=== PATIENT | female | born 2000 | race Two or more races ===

== ENCOUNTER 2025-03-27 15:58 | Emergency (ER) | payer OTHER ==
[~2025-03-27] VITALS: Ht 157.5 cm; Wt 64.2 kg
[2025-03-27 20:13] VITALS: BP 108/62; TEMP 98.6; O2SAT 97
== END 2025-03-27 20:25 | disposition home or self-care (01) ==
LOC: M ED 15:58
DX: S13.9XXA Sprain of joints and ligaments of unspecified parts of neck, initial encounter (principal); V49.40XA Driver injured in collision with unspecified motor vehicles in traffic accident, initial encounter; Z91.010 Allergy to peanuts; Y92.410 Unspecified street and highway as the place of occurrence of the external cause; Y93.89 Activity, other specified; Y99.9 Unspecified external cause status